=== PATIENT | male | born 1985 | race Caucasian/White ===

== ENCOUNTER 2020-12-30 02:56 | Emergency (ER) | payer SELFPAY ==
--- NOTE | 2020-12-30 03:33 | ED ---
Altered Mental Status HPI - General Chief Complaint: Alcohol Stated Complaint: ETOH Time Seen by Provider: 12/30/20 02:57 Source: patient, EMS Mode of arrival: EMS Limitations: altered mental status - Related Data Allergies Allergy/AdvReac Type Severity Reaction Status Date / Time No Known Allergies Allergy Verified 12/30/20 03:13 Review of Systems ROS Statement: Those systems with pertinent positive or pertinent negative responses have been documented in the HPI. ROS Other: All systems not noted in ROS Statement are negative. Past Medical History Past Medical History: Unable to Obtain History of Any Multi-Drug Resistant Organisms: None Reported Past Surgical History: Unable to Obtain Past Psychological History: No Psychological Hx Reported, Unable to Obtain Smoking Status: Unknown if ever smoked Past Alcohol Use History: None Reported Past Drug Use History: None Reported General Exam Limitations: altered mental status Course Vital Signs 12/30/20 12/30/20 12/30/20 03:10 03:35 06:12 Temperature 98.8 F Pulse Rate 89 101 H 95 Respiratory 18 18 16 Rate Blood Pressure 182/100 121/77 122/73 O2 Sat by Pulse 97 95 97 Oximetry Disposition Clinical Impression: Alcoholic intoxication Disposition: HOME SELF-CARE Condition: Fair Instructions (If sedation given, give patient instructions): Alcohol Intoxication (ED) Is patient prescribed a controlled substance at d/c from ED?: No Referrals: None,Stated [Primary Care Provider] - 1-2 days
[2020-12-30] MEDS ORDERED: ZIPRASIDONE 20 MG VIAL IM STA (03:36)
[2020-12-30 09:09] VITALS: BP 124/78; PULSE 110; RESP 18; TEMP 97.8
== END 2020-12-30 09:19 | disposition home or self-care (01) ==
LOC: EC 02:56
DX: F10.129 Alcohol abuse with intoxication, unspecified (principal); Y90.9 Presence of alcohol in blood, level not specified
CPT/HCPCS: 99284; 96372; J3486